=== PATIENT | female | born 1960 | race African-American/Black ===

== ENCOUNTER 2017-01-30 21:47 | Emergency (ER) | payer BC ==
[~2017-01-30 21:47] MED LIST: *UNABLE1; CAT1 PO; CLEOCIN300 MG PO; KLOR-CON 1010 MEQ PO; L80 PO; LANTUS SC; LEVEMIR SC; MICONAZOLE2 %; MONISTAT; NEUR300 PO; NORV10 PO; NOVOLOG SC; PEP20 PO; PEPCID40 MG OR; PERCOCET1 TA2 PO; PROAIR HFA INH; PROVHFA INH; SYN.15 PO; TEMOVATE0.051; VALIUM10 MG PO; VALTREX5 PO
[2017-01-30 22:03] LABS: BASOPHILS 0.4 %; BASOPHILS ABSOLUTE 0.03 10/3/uL (0.0-0.16); EOSINOPHILS 2.9 %; EOSINOPHILS ABSOLUTE 0.21 10/3/uL (0.0-0.53); ER CBC TAT 0 Hrs 05 Mins; HEMATOCRIT 45.2 % (36.0-48.0); HEMOGLOBIN 15.2 g/dL (12.0-16.0); IMMATURE GRANULOCYTES 0.1 %; IMMATURE GRANULOCYTES ABSOLUTE 0.01 10/3/uL (0.0-0.11); LYMPHOCYTES 40.3 %; LYMPHOCYTES ABSOLUTE 2.94 10/3/uL (0.67-4.30); MEAN CORPUS HGB CONC 33.6 g/dL (32.0-36.0); MEAN CORPUSCULAR HEMOGLOB 30.1 pg (26.0-34.0); MEAN CORPUSCULAR VOLUME 89.5 fL (80-100); MONOCYTES 7.5 %; MONOCYTES ABSOLUTE 0.55 10/3/uL (0.21-1.20); NEUTROPHILS 48.8 %; NEUTROPHILS ABSOLUTE 3.55 10/3/uL (2.02-8.40); PLATELET COUNT 241 10/3/uL (150-400); RBC DISTRIBUTION WIDTH 13.5 % (12.0-16.0); RED CELL COUNT 5.05 10/6/uL (4.0-5.6); WHITE BLOOD CELLS 7.3 10/3/uL (4.5-10.5)
[2017-01-30 22:06] LABS: MANUAL DIFF NO %
[2017-01-30 22:14] LABS: INTERNATIONAL NORMAL RATI 1.1 UNITS (-); PARTIAL THROMBO TIME 25.6 SEC (22.5-37.2)
[2017-01-30 22:32] LABS: CALCIUM, SERUM 9.5 MG/DL (8.5-10.4); CHLORIDE, SERUM 103 MMOL/L (96-112); CO2 (CARBON DIOXIDE) 30 MMOL/L (24-34); GLUCOSE, SERUM 207 MG/DL (60-99); POTASSIUM, SERUM 4.1 MMOL/L (3.5-5.3); SODIUM, SERUM 139 MMOL/L (135-148); TROPONIN I <0.02 NG/ML (<0.05)
[2017-01-30 22:33] LABS: BUN (BLOOD UREA NITROGEN) 20 MG/DL (6-23); CREATININE 1.32 MG/DL (0.55-1.02); GFR AFRICAN AMERICAN 53 ML/MIN (>=60); GFR NON AFRICAN AMERICAN 46 ML/MIN (>=60)
[2017-01-30 22:34] LABS: CHEST PAIN PROFILE TAT 0 Hrs 34 Mins
[2017-05-07] MEDS ORDERED: PEP20 PO (20:42)
[2017-05-07] MEDS ORDERED: XANAX1 MG PO (20:43)
[2017-05-07] MEDS ORDERED: NEUR600 PO (20:43)
[2017-05-07] MEDS ORDERED: PCET PO (20:43)
[2017-05-07] MEDS ORDERED: REMERON30 MG PO (20:44)
[2017-05-07] MEDS ORDERED: CAT1 PO (20:45)
[2017-05-07] MEDS ORDERED: *UNABLE3 (20:47)
[2017-05-07] MEDS ORDERED: LANTUS SC (20:48)
[2017-05-10] MEDS ORDERED: CLEOTGEL V (16:17)
[2017-05-10] MEDS ORDERED: MICONAZOLE CREA30 GM V (16:21)
[2017-05-29] MEDS ORDERED: X5 PO ×2 (08:42→12:19)
[2017-05-29] MEDS ORDERED: NORV10 PO ×2 (08:43→12:18)
[2017-05-29] MEDS ORDERED: NEUR600 PO (12:17)
[2017-05-29] MEDS ORDERED: SYN.15 PO (12:17)
[2017-05-29] MEDS ORDERED: HUMALOG SC (12:17)
[2017-05-29] MEDS ORDERED: LEVEMIR SC (12:17)
[2017-05-29] MEDS ORDERED: PEP20 PO (12:18)
[2017-05-29] MEDS ORDERED: REMERON30 MG PO (12:21)
[2017-05-29] MEDS ORDERED: PROTONIX PO (12:22)
== END 2017-01-30 23:39 | disposition home or self-care (01) ==
LOC: ER 21:47
PROVIDERS: Emergency Medicine
DX: R07.89 Other chest pain (principal); N28.9 Disorder of kidney and ureter, unspecified; I10 Essential (primary) hypertension; K21.9 Gastro-esophageal reflux disease without esophagitis; E11.9 Type 2 diabetes mellitus without complications; Z88.8 Allergy status to other drugs, medicaments and biological substances; Z91.011 Allergy to milk products; Z91.013 Allergy to seafood; Z91.040 Latex allergy status
CPT/HCPCS: 71020; 80048; 81001; 83735; 84484; 85025; 85610; 85730; 93005; 96372; 99285; J1885